=== PATIENT | male | born 1990 | race Caucasian/White ===

== ENCOUNTER 2025-02-07 08:56 | Emergency (ER) | payer BC ==
[~2025-02-07] VITALS: Ht 170.2 cm; Wt 101.2 kg
--- NOTE | 2025-02-07 09:25 | ED.PDOC ---
GI ASSESSMENT HPI Comments 34-year-old male that presents to the ED for chief complaint of diarrhea. Patient states he has been having diarrhea from a past two days. Patient states he has gone 30 times yesterday and states he he went across the 15 times today. Patient states the diarrhea is brown to light brown in color. Patient has a associated epigastric abdominal pain with associated nausea, chills, and back pain. Patient states his had similar symptoms home one month prior and states she was prescribed proton pump inhibitors and states symptoms went away. Patient states he also took proton pump inhibitors but states his symptoms have worsened. Patient states he came to the ED due to worsening of symptoms and associated increased weakness malaise and progression of symptoms. Patient states he tried eating but states he felt nauseous afterwards. Patient otherwise denies any recent sick contacts changes to diet or any associated risk factors. Number of times; 30 Medication taken proton pump inhibitors Denies recent antibiotics nor hospitalization Denies blood or black stools Denies fevers night sweats Denies cough runny nose Denies rashes Denies recent travel Urinating normally Chief Complaint: Diarrhea Time Seen by MD: 09:18 Primary Care Provider: MITCHELLK Reviewed Notes: Medications, Allergies Allergies: Coded Allergies: NO KNOWN ALLERGIES (Unverified , 03/16/11) Information Source: Patient Mode of Arrival: Ambulatory Brought in by: Self Timing: Hours Past Medical History PAST MEDICAL HISTORY: Denies Surgical History: Appendectomy Family History Family History: Unknown Social History Smoker: Non-Smoker Alcohol: Sober Drugs: Denies Drug Use Lives In: Home Constitutional: reports: fatigue, malaise Gastrointestinal: reports: abdominal pain, diarrhea, nausea Physical Exam General Appearance: No Apparent Distress, Normal HEENT: Normal ENT Inspection, Pharynx Normal, TMs Normal Neck: Full Range of Motion, Non-Tender, Normal, Normal Inspection Respiratory: Chest Non-Tender, Lungs Clear, No Accessory Muscle Use, No Respiratory Distress, Normal Breath Sounds Cardiovascular: No Edema, No JVD, No Murmur, No Gallop, Normal Peripheral Pulses, Regular Rate/Rhythm Breast Exam: Deferred Gastrointestinal: No Organomegaly, Non Tender, No Pulsatile Mass, Normal Bowel Sounds, Soft Genitalia: Deferred Pelvic: Deferred Rectal: Deferred Extremities: No calf tenderness, Normal capillary refill, Normal inspection, Normal range of motion, Non-tender, No pedal edema Musculoskeletal : Apperance: Normal Neurologic: Alert, appliquer II-XII nml as Tested, No Motor Deficits, Normal Affect, Normal Mood, No Sensory Deficits Cerebellar Function: Normal Reflexes: Normal Skin: Dry, Normal Color, Warm Lymphatic: No Adenopathy Was a procedure done? Was a procedure done?: No GI differential Dx Differential Diagnosis: Diverticular disease, Gastritis/PUD, Gastroenteritis, GI hemorrhage, Inflammatory BD, Dehydration, Electrolyte Imbalance, Food Poisoning, Bacterial, Viral Other Differential Diagnosis Colitis, X-Ray, Labs, Meds, VS Vital Signs Date Time Temp Pulse Resp B/P (MAP) Pulse Ox O2 Delivery O2 Flow Rate FiO2 02/07/25 08:58 99.7 87 20 154/104 96 99.7 Lab Test 02/07/25 10:44 02/07/25 09:15 Range/Units Urine Color Colorless Yellow Urine Clarity Clear Clear Urine pH 6.5 5.0-9.0 Urine Specific [place] 1.005 1.001-1.035 Urine Protein Negative Negative Urine Ketones Negative Negative Urine Blood Negative Negative /uL Urine Nitrite Negative Negative Urine Bilirubin Negative Negative Urine Urobilinogen Normal Negative mg/dL Urine Leukocyte Esterase Negative Negative /uL Urine RBC <1 0 - 3 /hpf Urine Microscopic WBC < 1 0-3 /HPF Urine Squamous Epithelial Cells None seen <5 /hpf Urine Bacteria Few H None Seen /hpf Urine Glucose Normal Normal mg/dL White Blood Count 7.7 4.4-10.8 10^3/uL Red Blood Count 5.68 4.5-5.90 10^6/uL Hemoglobin 17.6 H 13.5-17.5 g/dL Hematocrit 50.8 41.0-53.0 % Mean Corpuscular Volume 89.5 80.0-100.0 fL Mean Corpuscular Hemoglobin 30.9 28.0-32.0 pg Mean Corpuscular Hemoglobin Concent 34.6 32.0-36.0 g/dL Red Cell Distribution Width 11.9 11.8-14.3 % Platelet Count 303 140-450 10^3/uL Mean Platelet Volume 8.5 6.9-10.8 fL Neutrophils (%) (Auto) 78.4 37.0-80.0 % Lymphocytes (%) (Auto) 12.9 10.0-50.0 % Monocytes (%) (Auto) 5.6 0.0-12.0 % Eosinophils (%) (Auto) 2.5 0.0-7.0 % Basophils (%) (Auto) 0.6 0.0-2.0 % Neutrophils # (Auto) 6.0 1.6-8.6 10 ^3/uL Lymphocytes # (Auto) 1.0 0.4-5.4 10 ^3/uL Monocytes # (Auto) 0.4 0-1.3 10 ^3/uL Eosinophils # (Auto) 0.2 0-0.8 10 ^3/uL Basophils # (Auto) 0 0-0.2 10 ^3/uL Nucleated Red Blood Cells 0.1 % Sodium Level 137 136-145 mmol/L Potassium Level 4.5 3.5-5.1 mmol/L Chloride Level 105 98-107 mmol/L Carbon Dioxide Level 22 20-31 mmol/L Anion Gap 10 5-15 Blood Urea Nitrogen 11 9-23 mg/dL Creatinine 1.14 0.700-1.30 mg/dL Glomerular Filtration Rate Calc 85 >90 mL/min BUN/Creatinine Ratio 9.6 L 10.0-20.0 Serum Glucose 108 H 74-106 mg/dL Calcium Level 10.0 8.7-10.4 mg/dL Lipase 39 12-53 U/L Current Medications Medications (Trade) Dose Ordered Sig/Brady Route Start Time Stop Time Status Last Admin Sodium Chloride 1,000 ml @ 1,000 mls/hr Q1H ONCE IV 02/07/25 09:15 02/07/25 10:14 DC 02/07/25 09:27 Ondansetron HCl (Zofran) 4 mg ONCE ONCE IV 02/07/25 09:15 02/07/25 09:16 DC 02/07/25 09:30 Diphenoxylate HCl/ Atropine (Lomotil Tablet) 5 mg ONCE ONCE PO 02/07/25 09:15 02/07/25 09:16 DC 02/07/25 09:28 Pantoprazole Sodium (Protonix Tablet) 40 mg ONCE ONCE PO 02/07/25 09:15 02/07/25 09:16 DC 02/07/25 09:28 X-Ray, Labs, Meds, VS Comment Patient arrives alert and oriented, ABC's intact, afebrile, vital signs stable, saturating well in room air Peripheral IV insertion+ labs were ordered. CBC was ordered to exclude anemia, blood loss, or infection. BMP was ordered to exclude electrolyte abnormalities, renal failure, dehydration, hyperglycemia Urinalysis was ordered to rule out UTI or hematuria. was evaluated for dehydration and a differential for IBD, ischemic colitis, dysentery, and bacterial infection was considered. The acute presentation and exam are most consistent with food poisoning vs viral gastroenteritis. No vomiting or diarrhea while here. He is tolerating oral liquids and repeat abdominal exam is benign. Patients GI symptoms likely due to viral illness or food-borne illness. There is no evidence of sepsis or systemic toxicity or significant dehydration. The patient presents with signs and sympotms consistent with diarrhea of unclear etiology. Patients' work up as indicated above was fairly unrema rkable. I don't appreciate evidence of acute bacterial infection. Presentation more likely AGE than appendicitis, colitis, diverticulitis, obstruction or other acute abdominal catastrophe. Pt did not complain of severe abdominal pain, high fevers or blood in stool and initial abdominal exam was uremarkable. After a period of observation and investigation, patient remained stable without new complaints. Considering patients nontoxic appearance, benign abdominal exam and that they are tolerating oral fluids, I feel they are a reasonable outpatient candidate. They will be discharged with outpatient follow up and return to Emergency Department precautions as per my usual custom and practice. Recommend clear liquid to bland/BRAT diet, avoiding lactose and animal products and probiotics as well as importance of oral hydration and consider acidophilus OTC. Pt advised to call back if symptoms such as more than 6 stools per day, not voiding regularly, unable to take oral fluids, high fever, severe weakness or f ainting, dry mucous membranes or other signs of dehydration, persisting or increasing abdominal pain, blood in stool or vomit, or failure to improve in 1-2 days. Patient understands diagnosis and instructions and had no further questions. Additional MDM Review of External, Non-ED records: External records reviewed. Discussion with independent historian (EMS, family) history obtained from the patient/parents (if applicable) at bedside Chronic conditions affecting care: None Social determinants of health affecting care: None Consideration of admission (observation or admission): I considered escalation of care to admission for this patient, however given the reassuring workup, the patient is safe for outpatient management. Discussion with the Radiology: No Tests considered but not performed: Prescription medication considered but not given: 12 lead EKG interpretation: Time of 1ST Reevaluation: 09:50 Reevaluation 1ST: Unchanged Time of 2ND Reevaluation: 11:03 Reevaluation 2ND: Improved Patient Education/Counseling: Diagnosis, Treatment Family Education/Counseling: No Family Present SEPSIS Sepsis Screen Date sepsis recognized/suspect: Feb 07, 2025 Time Sepsis recognized/suspect: 0858 Recent Procedure: No On Antibiotic Therapy: No Respiratory Rate >20: No Heart Rate >90: No Temp<36 C (96.8 F) or >38.3 C: No SBP <90 or MAP <65 mmHG: No New Acute Mental Status Change: No Is the patient on CPAP, BIPAP,: No Physician Orders Heplock Iv (02/07/25 ) Vital Signs Date Time Temp Pulse Resp B/P (MAP) Pulse Ox O2 Delivery O2 Flow Rate FiO2 02/07/25 08:58 99.7 87 20 154/104 96 99.7 Laboratory Tests Test 02/07/25 09:15 White Blood Count 7.7 10^3/uL (4.4-10.8) Medications Medications Dose Ordered Sig/Brady Route Start Time Stop Time Status Last Admin Dose Admin Diphenoxylate HCl/ Atropine 5 mg ONCE ONCE PO 02/07/25 09:15 02/07/25 09:16 DC 02/07/25 09:28 Ondansetron HCl 4 mg ONCE ONCE IV 02/07/25 09:15 02/07/25 09:16 DC 02/07/25 09:30 Pantoprazole Sodium 40 mg ONCE ONCE PO 02/07/25 09:15 02/07/25 09:16 DC 02/07/25 09:28 Sodium Chloride 1,000 ml @ 1,000 mls/hr Q1H ONCE IV 02/07/25 09:15 02/07/25 10:14 DC 02/07/25 09:27 Departure 1 Departure Time of Disposition: 11:05 Impression: Primary Impression: Diarrhea Qualified Codes: R19.7 - Diarrhea, unspecified Disposition: 01 HOME / SELF CARE / HOMELESS Condition: Fair e-Prescriptions Loperamide HCl (Loperamide HCl) 2 Mg Tab 2 MG PO UD for 5 Days, #21 TAB 0 Refills Prov: KEVIN FERNÁNDEZ [employer] 02/07/25 Ondansetron HCl (Ondansetron) 4 Mg Tab 4 MG PO Q8HP PRN for 3 Days, #9 TAB 0 Refills Prov: KEVIN FERNÁNDEZ NP 02/07/25 Critical Care Note Critical Care Time?: No Stability Stability form required: No Heart Score Heart Score: Heart Score Response (Comments) Value History N/A 0 EKG N/A 0 Age N/A 0 Risk Factors N/A 0 Troponin N/A 0 Total 0 I personally scribed for KEVIN FERNÁNDEZ NP ([email or web address]) on 02/07/25 at 09:25. Electronically submitted by Benjamin Kruse ([email or web address]). KEVIN FERNÁNDEZ NP Feb 07, 2025 09:25
[2025-02-07] MEDS: SODIUM CHLORIDE 0.9% 1,000 ML IV ONE (09:27)
[2025-02-07] MEDS: PANTOPRAZOLE 40 MG TAB PO ONE (09:28)
[2025-02-07] MEDS: DIPHENOXYLATE W/ATROPINE 2.5 MG TAB PO ONE (09:28)
[2025-02-07] MEDS: ONDANSETRON HCL 4 MG/2 ML VIAL IV ONE (09:30)
[2025-02-07 09:38] LABS: Hematocrit 50.8 % (41.0-53.0); Hemoglobin 17.6 g/dL (13.5-17.5); Mean Corpuscular Hemoglobin 30.9 pg (28.0-32.0); Mean Corpuscular Volume 89.5 fL (80.0-100.0); Nucleated Red Blood Cells % 0.1 %
[2025-02-07 09:42] LABS: Chloride 105 mmol/L (98-107); Potassium 4.5 mmol/L (3.5-5.1); Sodium 137 mmol/L (136-145)
[2025-02-07 09:43] LABS: Anion Gap 10 (5-15); Calcium 10.0 mg/dL (8.7-10.4); Carbon Dioxide 22 mmol/L (20-31)
[2025-02-07 09:48] LABS: BUN/Creatinine Ratio 9.6 (10.0-20.0); Blood Urea Nitrogen 11 mg/dL (9-23)
[2025-02-07 09:49] LABS: Glucose 108 mg/dL (74-106)
[2025-02-07 10:05] LABS: Lipase 39 U/L (12-53)
[2025-02-07 10:53] LABS: Urine Protein, UAD Negative (Negative)
[2025-02-07] MEDS ORDERED: ONDA-155 PO (11:07)
[2025-02-07] MEDS ORDERED: LOPE1TAB9 PO (11:07)
[2025-02-07] MEDS ORDERED: DIPH2.5T73 PO (11:07)
[2025-02-07 11:13] VITALS: BP 138/87; PULSE 89; RESP 17; TEMP 98.7; O2SAT 98
== END 2025-02-07 11:17 | disposition home or self-care (01) ==
LOC: ER 08:56
DX: R19.7 Diarrhea, unspecified (principal); R10.13 Epigastric pain; Z90.49 Acquired absence of other specified parts of digestive tract
CPT/HCPCS: 36415; 80048; 81001; 83690; 85025; 96361; 96374; 99283; J2405; J7030